=== PATIENT | male | born 1975 | race Caucasian/White ===

== ENCOUNTER 2017-04-02 15:02 | Emergency (ER) | payer MEDICAID ==
[~2017-04-02] VITALS: Ht 180.3 cm; Wt 164.7 kg
[2017-04-02] MEDS ORDERED: MECLIZINE CHEWABLE 25 MG TAB ONE (15:50)
[2017-04-02] MEDS ORDERED: SODIUM CHLORIDE FLUSH 10ML SYR IVF ONE (16:00)
[2017-04-02] MEDS ORDERED: MECLIZINE CHEWABLE 25 MG TAB PO ONE (16:00)
[2017-04-02] MEDS ORDERED: SODIUM CHLORIDE 0.9% 1,000ML IVBOLUS ONE (16:00)
[2017-04-02 16:01] LABS: BLOOD UREA NITROGEN 13 mg/dL (7-18)
[2017-04-02 17:35] VITALS: BP 138/80
== END 2017-04-02 17:37 | disposition home or self-care (01) ==
LOC: ED 17:30
DX: B34.9 Viral infection, unspecified (principal); R42 Dizziness and giddiness
CPT/HCPCS: 36415; 71020; 80048; 82040; 82962; 85025; 93005; 96360; 99285; J7030

== ENCOUNTER 2017-11-10 13:00 | Emergency (ER) | payer MEDICAID ==
[~2017-11-10] VITALS: Ht 180.3 cm; Wt 158.8 kg
[2017-11-10] MEDS ORDERED: KETOROLAC 30 MG/1 ML ONE (14:19)
[2017-11-10] MEDS ORDERED: FAMOTIDINE 20 MG/2 ML ONE (14:19)
[2017-11-10] MEDS ORDERED: ONDANSETRON 2MG/ML, 2ML ONE (14:19)
[2017-11-10 14:25] LABS: BASOPHILS # (AUTO) 0.09 x10^3/uL (0-0.1); BASOPHILS % (AUTO) 1 % (0-1); EOSINOPHILS # (AUTO) 0.79 x10^3/uL (0-0.4); EOSINOPHILS % (AUTO) 12 % (1-7); LYMPHOCYTES # (AUTO) 2.41 x10^3/uL (1-3.4); LYMPHOCYTES % (AUTO) 37 % (22-44); MD NO; MEAN CORPUSCULAR HEMOGLOBIN 28.4 pg (27.5-34.5); MEAN CORPUSCULAR HGB CONC 33.5 g/dL (33.2-36.2); MEAN CORPUSCULAR VOLUME 84.6 fL (81-97); MEAN PLATELET VOLUME 7.7 fL (7.4-10.4); MONOCYTES # (AUTO) 0.46 x10^3/uL (0.2-0.8); MONOCYTES % (AUTO) 7 % (2-9); NEUTROPHILS # (AUTO) 2.72 x10^3/uL (1.8-6.8); NEUTROPHILS % (AUTO) 42 % (42-75); PLATELET COUNT 300 x10^3/uL (130-400); RED CELL DISTRIBUTION WIDTH 13.6 % (9.4-14.8)
[2017-11-10] MEDS ORDERED: SODIUM CHLORIDE FLUSH 10ML SYR IVF ONE (14:30)
[2017-11-10] MEDS ORDERED: KETOROLAC 30 MG/1 ML IVPush ONE (14:30)
[2017-11-10] MEDS ORDERED: FAMOTIDINE 20 MG/2 ML IVP ONE (14:30)
[2017-11-10] MEDS ORDERED: SODIUM CHLORIDE 0.9% 1,000ML IVBOLUS ONE (14:30)
[2017-11-10] MEDS ORDERED: ONDANSETRON 2MG/ML, 2ML IVPush ONE (14:30)
[2017-11-10 14:32] LABS: ALANINE AMINOTRANSFERASE 23 U/L (12-78); ALBUMIN 3.6 g/dL (3.4-5.0); ANION GAP 7 mmol/L (5-15); CALCIUM 8.6 mg/dL (8.5-10.1); CHLORIDE 105 mmol/L (98-107); CREATININE 0.65 mg/dL (0.7-1.3)
[2017-11-10 14:34] LABS: ALKALINE PHOSPHATASE 68 U/L (45-117); BILIRUBIN,TOTAL 0.8 mg/dL (0.2-1.0); TOTAL PROTEIN 7.2 g/dL (6.4-8.2)
[2017-11-10 15:40] VITALS: BP 132/77
== END 2017-11-10 16:35 | disposition home or self-care (01) ==
LOC: ED 15:21
DX: R11.2 Nausea with vomiting, unspecified (principal); R19.7 Diarrhea, unspecified
CPT/HCPCS: 36415; 74021; 80053; 83690; 85025; 96361; 96374; 96375; 99285; J1885; J2405; J7030; S0028

== ENCOUNTER 2017-11-26 17:18 | Emergency (ER) | payer MEDICAID ==
[~2017-11-26] VITALS: Ht 180.3 cm; Wt 159.3 kg
[2017-11-26 18:23] VITALS: BP 166/106
== END 2017-11-26 18:32 | disposition home or self-care (01) ==
LOC: ED 17:55
DX: B85.0 Pediculosis due to Pediculus humanus capitis (principal)
CPT/HCPCS: 99283

== ENCOUNTER 2018-01-11 09:54 | Emergency (ER) | payer MEDICAID ==
[~2018-01-11] VITALS: Ht 180.3 cm; Wt 157.8 kg
[2018-01-11] MEDS ORDERED: MULT-6 PO (11:07)
[2018-01-11] MEDS ORDERED: OMEG1CAP23 PO (11:08)
[2018-01-11] MEDS ORDERED: CHOL5000 PO (11:09)
[2018-01-11] MEDS ORDERED: CRAN500C PO (11:09)
[2018-01-11] MEDS ORDERED: ALBUTEROL/IPRATROPIUM 2.5MG/0.5MG, 3 ML ONE ×2 (11:24→12:33)
[2018-01-11] MEDS ORDERED: ALBUTEROL/IPRATROPIUM 2.5MG/0.5MG, 3 ML NPPB ONE ×2 (11:30→12:30)
[2018-01-11 11:32] LABS: BASOPHILS # (AUTO) 0.04 x10^3/uL (0-0.1); BASOPHILS % (AUTO) 1 % (0-1); EOSINOPHILS # (AUTO) 0.29 x10^3/uL (0-0.4); EOSINOPHILS % (AUTO) 7 % (1-7); LYMPHOCYTES # (AUTO) 1.23 x10^3/uL (1-3.4); LYMPHOCYTES % (AUTO) 28 % (22-44); MD NO; MEAN CORPUSCULAR HGB CONC 33.8 g/dL (33.2-36.2); MEAN CORPUSCULAR VOLUME 85.9 fL (81-97); MEAN PLATELET VOLUME 7.5 fL (7.4-10.4); MONOCYTES # (AUTO) 0.48 x10^3/uL (0.2-0.8); MONOCYTES % (AUTO) 11 % (2-9); NEUTROPHILS # (AUTO) 2.44 x10^3/uL (1.8-6.8); NEUTROPHILS % (AUTO) 55 % (42-75); PLATELET COUNT 291 x10^3/uL (130-400); RED BLOOD COUNT 5.19 x10^6/uL (4.38-5.82); RED CELL DISTRIBUTION WIDTH 14.3 % (9.4-14.8)
[2018-01-11 11:43] LABS: ALBUMIN 3.8 g/dL (3.4-5.0); ANION GAP 6 mmol/L (5-15); CALCIUM 8.7 mg/dL (8.5-10.1); CHLORIDE 104 mmol/L (98-107)
[2018-01-11 11:46] LABS: ALANINE AMINOTRANSFERASE 28 U/L (12-78); ALKALINE PHOSPHATASE 81 U/L (45-117); BILIRUBIN,TOTAL 0.5 mg/dL (0.2-1.0); CREATININE 0.84 mg/dL (0.7-1.3); TOTAL PROTEIN 7.6 g/dL (6.4-8.2)
[2018-01-11 13:05] VITALS: BP 150/70
== END 2018-01-11 13:55 | disposition home or self-care (01) ==
LOC: ED 13:14
DX: J98.01 Acute bronchospasm (principal); H65.02 Acute serous otitis media, left ear
CPT/HCPCS: 36415; 71046; 80053; 85025; 93005; 94640; 99285; J7512; J7620

== ENCOUNTER 2018-01-14 11:10 | Emergency (ER) | payer MEDICAID ==
[~2018-01-14] VITALS: Ht 180.3 cm; Wt 155.0 kg
[~2018-01-14 11:10] MED LIST: CHOL5000 PO; CRAN500C PO; MULT-6 PO; OMEG1CAP23 PO
[2018-01-14] MEDS ORDERED: ALBU0.63 NEB (11:42)
[2018-01-14] MEDS ORDERED: ANTIBIOTICS (11:42)
[2018-01-14] MEDS ORDERED: PRED20TA PO (11:42)
[2018-01-14 12:11] LABS: BASOPHILS # (AUTO) 0.01 x10^3/uL (0-0.1); BASOPHILS % (AUTO) 0 % (0-1); EOSINOPHILS # (AUTO) 0.02 x10^3/uL (0-0.4); EOSINOPHILS % (AUTO) 0 % (1-7); LYMPHOCYTES # (AUTO) 1.58 x10^3/uL (1-3.4); LYMPHOCYTES % (AUTO) 28 % (22-44); MD NO; MEAN CORPUSCULAR HGB CONC 33.7 g/dL (33.2-36.2); MEAN PLATELET VOLUME 7.7 fL (7.4-10.4); MONOCYTES # (AUTO) 0.21 x10^3/uL (0.2-0.8); MONOCYTES % (AUTO) 4 % (2-9); NEUTROPHILS # (AUTO) 3.87 x10^3/uL (1.8-6.8); NEUTROPHILS % (AUTO) 68 % (42-75); PLATELET COUNT 328 x10^3/uL (130-400); RED BLOOD COUNT 5.35 x10^6/uL (4.38-5.82)
[2018-01-14 12:23] LABS: ALBUMIN 3.7 g/dL (3.4-5.0); ANION GAP 7 mmol/L (5-15); CALCIUM 8.6 mg/dL (8.5-10.1); CHLORIDE 105 mmol/L (98-107)
[2018-01-14 12:29] LABS: ALANINE AMINOTRANSFERASE 29 U/L (12-78); ALKALINE PHOSPHATASE 68 U/L (45-117); BILIRUBIN,TOTAL 0.4 mg/dL (0.2-1.0); CREATININE 0.74 mg/dL (0.7-1.3); TOTAL PROTEIN 7.9 g/dL (6.4-8.2); TROPONIN I < 0.015 ng/mL (0.000-0.045)
[2018-01-14 13:39] VITALS: BP 151/92
== END 2018-01-14 14:03 | disposition home or self-care (01) ==
LOC: ED 13:27
DX: R09.02 Hypoxemia (principal); Z90.49 Acquired absence of other specified parts of digestive tract
CPT/HCPCS: 36415; 71045; 80053; 84484; 85025; 85379; 93005; 99285

== ENCOUNTER 2019-09-07 12:48 | Emergency (ER) | payer OTHER ==
[~2019-09-07] VITALS: Ht 180.3 cm; Wt 136.8 kg
[~2019-09-07 12:48] MED LIST changes: +ALBU0.63 NEB; +ANTIBIOTICS; +CALCIUM; +GINSENG; +HAIR SKIN; +PRED20TA PO; +SUPER B COMPLEX; +VITAMIN E
[2019-09-07 12:52] VITALS: BP 153/96
--- NOTE | 2019-09-07 13:55 | NUR ---
PT STATES HE NEEDS TO LEAVE TO TAKE SPOUSE TO WORK AND STATES HE JUST NEEDS NOTE FOR WORK. ERP IN TO SEE PT, OFFERED MEDICATIONS BUT PT DECLINES AT THIS TIME. WORK NOTE PROVIDED, PT DISCHARGED.
== END 2019-09-07 13:58 | disposition home or self-care (01) ==
LOC: ED 13:50
DX: R51 Headache (principal); I10 Essential (primary) hypertension; H53.149 Visual discomfort, unspecified; R11.2 Nausea with vomiting, unspecified; Z90.49 Acquired absence of other specified parts of digestive tract
CPT/HCPCS: 99281

== ENCOUNTER 2019-10-03 11:24 | Emergency (ER) | payer SELFPAY ==
[~2019-10-03] VITALS: Ht 180.3 cm; Wt 139.3 kg
[2019-10-03 11:26] VITALS: BP 155/98
[2019-10-03] MEDS ORDERED: KETOROLAC 30 MG/1 ML IM ONE (12:30)
[2019-10-03] MEDS ORDERED: ACETAMINOPHEN 500 MG TABLET PO ONE (12:30)
[2019-10-03] MEDS ORDERED: METHOCARBAMOL 750 MG TABLET PO ONE (12:30)
[2019-10-03] MEDS ORDERED: KETOROLAC 30 MG/1 ML ONE (12:52)
[2019-10-03] MEDS ORDERED: METHOCARBAMOL 750 MG TABLET ONE (12:52)
[2019-10-03] MEDS ORDERED: ACETAMINOPHEN 500 MG TABLET ONE (12:52)
== END 2019-10-03 13:06 | disposition home or self-care (01) ==
LOC: ED 13:00
DX: S39.012A Strain of muscle, fascia and tendon of lower back, initial encounter (principal); X58.XXXA Exposure to other specified factors, initial encounter; Y93.89 Activity, other specified; Y92.89 Other specified places as the place of occurrence of the external cause; Y99.8 Other external cause status
CPT/HCPCS: 72110; 96372; 99283; J1885

== ENCOUNTER 2020-09-10 06:52 | Emergency (ER) | payer SELFPAY ==
[~2020-09-10] VITALS: Ht 180.3 cm; Wt 161.8 kg
--- NOTE | 2020-09-10 07:27 | NUR ---
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
--- NOTE | 2020-09-10 07:41 | NUR ---
CHEST CONGESTION FOR 3 DAYS. EAR PAIN TODAY WITH VOMITING
--- NOTE | 2020-09-10 08:08 | NUR ---
OBTAINED COVID SAMPLE. AWAITING LABS AND XRAY.
[2020-09-10] MEDS ORDERED: ACETAMINOPHEN 500 MG TABLET PO ONE (08:30)
[2020-09-10] MEDS ORDERED: AMOXICILLIN 500 MG CAPSULE PO SCH (08:30)
[2020-09-10] MEDS ORDERED: ONDANSETRON ODT 4 MG PO ONE (08:30)
[2020-09-10 08:37] LABS: BASOPHILS % (AUTO) 1 % (0-1); EOSINOPHILS % (AUTO) 9 % (1-7); LYMPHOCYTES % (AUTO) 24 % (22-44); MEAN CORPUSCULAR HGB CONC 33.9 g/dL (33.2-36.2); MEAN PLATELET VOLUME 7.2 fL (7.4-10.4); MONOCYTES % (AUTO) 12 % (2-9); NEUTROPHILS % (AUTO) 53 % (42-75); PLATELET COUNT 298 x10^3/uL (130-400); RED BLOOD COUNT 4.89 x10^6/uL (4.38-5.82); RED CELL DISTRIBUTION WIDTH 13.8 % (9.4-14.8)
[2020-09-10] MEDS ORDERED: AMOXICILLIN 500 MG CAPSULE ONE (08:40)
[2020-09-10] MEDS ORDERED: ONDANSETRON ODT 4 MG ONE (08:40)
[2020-09-10] MEDS ORDERED: ACETAMINOPHEN 500 MG TABLET ONE (08:41)
[2020-09-10 08:42] LABS: MD NO
[2020-09-10 08:49] VITALS: BP 153/96
--- NOTE | 2020-09-10 08:49 | NUR ---
MEDICATED NOTED ON MAR
[2020-09-10 08:54] LABS: ALBUMIN 3.7 g/dL (3.4-5.0); ANION GAP 6 mmol/L (5-15); CALCIUM 8.7 mg/dL (8.5-10.1); CHLORIDE 108 mmol/L (98-107)
[2020-09-10 09:02] LABS: ALANINE AMINOTRANSFERASE 36 U/L (12-78); ALKALINE PHOSPHATASE 80 U/L (45-117); BILIRUBIN,TOTAL 0.7 mg/dL (0.2-1.0); C-REACTIVE PROTEIN, QUANT 1.85 mg/dL (0.02-0.49); CREATININE 0.72 mg/dL (0.7-1.3); TOTAL PROTEIN 7.7 g/dL (6.4-8.2)
== END 2020-09-10 09:36 | disposition home or self-care (01) ==
LOC: ED 07:37
DX: H66.002 Acute suppurative otitis media without spontaneous rupture of ear drum, left ear (principal); Z20.828 Contact with and (suspected) exposure to other viral communicable diseases; J02.8 Acute pharyngitis due to other specified organisms; B97.89 Other viral agents as the cause of diseases classified elsewhere; R94.31 Abnormal electrocardiogram [ECG] [EKG]; I10 Essential (primary) hypertension; R51.9 Headache, unspecified
CPT/HCPCS: 36415; 71045; 80053; 83615; 84145; 85025; 86140; 87635; 93005; 99285; Q0162

== ENCOUNTER 2020-12-01 15:58 | Emergency (ER) | payer OTHER ==
[~2020-12-01] VITALS: Ht 180.3 cm; Wt 166.2 kg
--- NOTE | 2020-12-01 16:41 | NUR ---
pc analyst note: Pt to room from lobby.
--- NOTE | 2020-12-01 17:09 | NUR ---
PT STATES HE WAS DIZZY AT WORK AT [employer] AND [employer] THERE TOOK HIS VITALS AND STATES HE HAD HIGH BLOOD PRESSURE THEY WERE CONCERNED ABOUT AND ADVISED HIM TO COME GET CHECKED OUT HERE. THEY DID NOT TELL PT WHAT IT WAS READING. PT TOOK TAXI FROM WORK TO HERE. PLEASANT AFFECT, A&OX4, STATES DIZZYNESS IS GONE NOW.
--- NOTE | 2020-12-01 17:13 | NUR ---
PT REPORT NO HX OF HTN AND DENIES TAKING MEDICATIONS.
[2020-12-01 17:42] LABS: BASOPHILS % (AUTO) 1 % (0-1); EOSINOPHILS % (AUTO) 5 % (1-7); LYMPHOCYTES % (AUTO) 37 % (22-44); MEAN CORPUSCULAR HEMOGLOBIN 29.5 pg (27.5-34.5); MEAN CORPUSCULAR HGB CONC 33.7 g/dL (33.2-36.2); MEAN PLATELET VOLUME 7.3 fL (7.4-10.4); MONOCYTES % (AUTO) 10 % (2-9); NEUTROPHILS % (AUTO) 46 % (42-75); PLATELET COUNT 296 x10^3/uL (130-400); RED BLOOD COUNT 4.68 x10^6/uL (4.38-5.82); RED CELL DISTRIBUTION WIDTH 13.9 % (9.4-14.8)
[2020-12-01 17:50] LABS: MD NO
[2020-12-01 17:55] LABS: ALBUMIN 3.8 g/dL (3.4-5.0); ANION GAP 8 mmol/L (5-15); CALCIUM 8.6 mg/dL (8.5-10.1); CHLORIDE 110 mmol/L (98-107)
[2020-12-01 18:02] LABS: ALANINE AMINOTRANSFERASE 35 U/L (12-78); ALKALINE PHOSPHATASE 71 U/L (45-117); BILIRUBIN,TOTAL 0.8 mg/dL (0.2-1.0); CREATININE 0.72 mg/dL (0.7-1.3); TOTAL PROTEIN 7.3 g/dL (6.4-8.2); TROPONIN I < 0.015 ng/mL (0.000-0.045)
[2020-12-01 18:30] VITALS: BP 166/107
== END 2020-12-01 18:56 | disposition home or self-care (01) ==
LOC: ED 17:21
DX: R55 Syncope and collapse (principal); R42 Dizziness and giddiness; I10 Essential (primary) hypertension; R11.2 Nausea with vomiting, unspecified
CPT/HCPCS: 36415; 80053; 84484; 85025; 93005; 99284

== ENCOUNTER 2021-01-19 05:24 | Emergency (ER) | payer SELFPAY ==
[~2021-01-19] VITALS: Ht 180.3 cm; Wt 167.0 kg
[2021-01-19 06:12] LABS: BASOPHILS % (AUTO) 2 % (0-1); EOSINOPHILS % (AUTO) 12 % (1-7); LYMPHOCYTES % (AUTO) 43 % (22-44); MEAN CORPUSCULAR HEMOGLOBIN 29.4 pg (27.5-34.5); MEAN CORPUSCULAR HGB CONC 33.4 g/dL (33.2-36.2); MEAN PLATELET VOLUME 7.3 fL (7.4-10.4); MONOCYTES % (AUTO) 9 % (2-9); NEUTROPHILS % (AUTO) 35 % (42-75); PLATELET COUNT 306 x10^3/uL (130-400); RED BLOOD COUNT 4.88 x10^6/uL (4.38-5.82); RED CELL DISTRIBUTION WIDTH 13.7 % (9.4-14.8)
[2021-01-19 06:14] LABS: MD NO
[2021-01-19 06:21] LABS: ALANINE AMINOTRANSFERASE 28 U/L (12-78); ALBUMIN 3.5 g/dL (3.4-5.0); ANION GAP 5 mmol/L (5-15); CALCIUM 8.8 mg/dL (8.5-10.1); CHLORIDE 107 mmol/L (98-107); CREATININE 0.69 mg/dL (0.7-1.3)
[2021-01-19 06:23] LABS: ALKALINE PHOSPHATASE 63 U/L (45-117); BILIRUBIN,TOTAL 0.4 mg/dL (0.2-1.0)
[2021-01-19 06:30] VITALS: BP 147/97
== END 2021-01-19 06:56 | disposition home or self-care (01) ==
LOC: ED 06:10
DX: R11.2 Nausea with vomiting, unspecified (principal); R19.7 Diarrhea, unspecified; I10 Essential (primary) hypertension
CPT/HCPCS: 36415; 80053; 85025; 93005; 99284